=== PATIENT | female | born 1985 | race Caucasian/White ===

== ENCOUNTER 2017-06-11 08:15 | Emergency (ER) | payer OTHER ==
[2017-06-11 08:39] VITALS: BP 125/76
--- NOTE | 2017-06-11 09:18 | UC ---
Respiratory Complaint HPI - HPI Summary HPI Summary: 32 yo female c/o last 3+ days cough, congestion, fever. Denies GI sx. + yellow - white sputum production. + tobacco. + subj fever. + household contact with similar sx, and reports recent close contact Inf A exposure. + headache, mirta L frontal forehead. - History of Current Complaint Chief Complaint: UCRespiratory Stated Complaint: COUGH Time Seen by Provider: 06/11/17 08:58 Hx Obtained From: Patient Hx Last Menstrual Period: 06/02/17 ?: No Onset/Duration: Lasting Days - Allergies/Home Medications Allergies/Adverse Reactions: Allergies Allergy/AdvReac Type Severity Reaction Status Date / Time No Known Allergies Allergy Verified 06/11/17 08:39 Home Medications: Home Medications [id number]-Peepk [Vicks Dayquil/Nyquil Cold] 2 tab PO Q4HR PRN [History Confirmed 06/11/17] PMH/Surg Hx/FS Hx/Imm Hx Previously Healthy: Yes - Surgical History Surgical History: Yes Surgery Procedure, Year, and Place: c section; Lymphatic tumor removed right side; T&A - Family History Known Family History: Positive: Unknown - Social History Alcohol Use: Rare Substance Use Type: None Smoking Status (MU): Heavy Every Day Tobacco Smoker Amount Used/How Often: 1/2ppd - Immunization History Most Recent Influenza Vaccination: NOT UTD Review of Systems Constitutional: Fever, Fatigue Skin: Negative Eyes: Negative ENT: Sore Throat, Nasal Discharge, Sinus Congestion Respiratory: Cough Cardiovascular: Negative Gastrointestinal: Negative Genitourinary: Negative Motor: Negative Neurovascular: Negative Musculoskeletal: Negative Neurological: Negative Psychological: Negative Is Patient Immunocompromised?: No All Other Systems Reviewed And Are Negative: Yes Physical Exam Triage Information Reviewed: Yes Appearance: Well-Nourished - looks tired. nontoxic appearance. Able to walk around and respond to questions in full sentances. Vital Signs: Initial Vital Signs Temp 98.8 F 06/11/17 08:35 Pulse 100 06/11/17 08:35 Resp 20 06/11/17 08:35 BP 125/76 06/11/17 08:35 Pulse Ox 98 06/11/17 08:35 Vital Signs Reviewed: Yes Eye Exam: Normal ENT: Positive: Pharyngeal erythema - mild post phar redness, uvula midline. No obvious sores or ulcers, TM dull Neck exam: Normal Neck: Positive: Supple, Nontender, No Lymphadenopathy Respiratory Exam: Other - + rhonchorus cough, mild exp wheezes bilat. No stridor. BS equal Cardiovascular Exam: Normal Cardiovascular: Positive: RRR, No Murmur, Pulses Normal, Brisk Capillary Refill Abdominal Exam: Normal Musculoskeletal Exam: Normal - moves all 4 ext's Neurological Exam: Normal - grossly nonfocal Psychological Exam: Normal - converses easily and appropriately Skin Exam: Normal - no visible or reported rash. Non-diaphoretic. Diagnostic Evaluation - Laboratory O2 Sat by Pulse Oximetry: 98 Respiratory Course/Dx - Course Course Of Treatment: Influenza NS - neg. Reviewed CXR and report. Reviewed report with Ms. Gilbert, encouraged need for f/u with pcp. [facility] [place] referral telephone number given. Encourage smoking cessation. Rx albuterol. Also rx tamiflu (significant household exposure) and amoxil (bronchitis, probable additional sinusitis). D/w pt Tx plan / COA. Questions as posed answered to the best of my ability. - Differential Dx/Diagnosis Provider Diagnoses: Bronchitis. Probable sinusitis. + Influenza exposure Discharge - Discharge Plan Condition: Stable Disposition: HOME Prescriptions: Albuterol HFA INHALER* [Ventolin HFA Inhaler*] 1 - 2 puff INH Q6H PRN #1 mdi PRN Reason: Wheezing Amoxicillin PO (*) [Amoxicillin 875 MG (*)] 875 mg PO BID #14 tab Oseltamivir CAP* [Tamiflu CAP*] 75 mg PO BID #10 cap Patient Education Materials: How to Stop Smoking (ED), Acute Bronchitis (ED), COPD (Chronic Obstructive Pulmonary Disease) (ED) Forms: *Work Release Referrals: [facility] [place] PHYSICIAN REFERRAL [Outside] No Primary Care Phys,NOPCP [Primary Care Provider] - Additional Instructions: Please follow up with a primary care provider as soon as possible, if possible in the next 1-2 weeks. Please seek medical attention for worse or new problems in the meantime.
--- NOTE | 2017-06-11 10:21 | RAD ---
INDICATION: Cough, fever. History of tobacco use. COMPARISON: April 01, 2003 TECHNIQUE: Dual energy PA and routine lateral views of the chest were obtained. REPORT: Elevated lung volumes. Accounting for superimposed breast tissue and normal bronchovascular markings the lungs and pleural spaces are clear. Negative for pneumothorax. The heart, pulmonary vasculature, and mediastinal contours are unremarkable. Unremarkable soft tissue contours and osseous structures. IMPRESSION: 1. Elevated lung volumes suggest potential obstructive lung disease. 2. No evidence for pneumonia.
== END 2017-06-11 10:49 | disposition home or self-care (01) ==
LOC: UCEAST 08:15
DX: J40 Bronchitis, not specified as acute or chronic (principal); F17.210 Nicotine dependence, cigarettes, uncomplicated
CPT/HCPCS: 71046; 87502; 99212; G0463

== ENCOUNTER 2017-12-20 16:18 | Emergency (ER) | payer OTHER ==
[2017-12-20 16:40] VITALS: BP 107/80
--- NOTE | 2017-12-20 16:53 | UC ---
Abdominal Pain Female HPI - HPI Summary HPI Summary: This is [facility] documenting for presenting Ulises Cary MD. abd pain onset ~3 days ago. Pain is located in diffuse RLQ. Pain described as a 5/10 and is described as achey and sharp, per comp. assessment. Assoc. Sx: Nausea/Diarrhea x1 week. Denies: melena, vomiting. She reports that when she leans forward, she feels lightheaded like she is going to pass out. Denies travel outside of country, consumption of unusual food, and any ABX use. Diarrhea is described as soft stool. LNMP: November (normal). - History of Current Complaint Chief Complaint: UCAbdominalPain Stated Complaint: DIARRHEA, AND ABDOMINAL PAIN Time Seen by Provider: 12/20/17 16:46 Hx Obtained From: Patient Hx Last Menstrual Period: 12/08/17 Onset/Duration: Gradual Onset, Lasting Days - abd pain - 3 days, Lasting Weeks - diarrhea - 1 week, Still Present, Worse Since Severity Currently: Moderate Pain Intensity: 5 Pain Scale Used: 0-10 Numeric Location: Diffuse, Discrete At: RLQ Character: Aching, Sharp Aggravating Factor(s): Nothing Alleviating Factor(s): Nothing Associated Signs and Symptoms: Positive: Nausea, Diarrhea, Other: - POS: Abd Pain. Negative: Blood in Stool, Vomiting Allergies/Adverse Reactions: Allergies Allergy/AdvReac Type Severity Reaction Status Date / Time No Known Allergies Allergy Verified 12/20/17 16:40 Home Medications: Home Medications Control 12/20/17 [History] PMH/Surg Hx/FS Hx/Imm Hx Other Endocrine History: NEG: DM Other Cardiovascular History: NEG: CAD, HTN. - Surgical History Surgical History: Yes Surgery Procedure, Year, and Place: c section; Lymphatic tumor removed right side; T&A - Family History Known Family History: Negative: Cardiac Disease, Hypertension, Diabetes - Social History Occupation: Unemployed Lives: With Family Alcohol Use: Rare Substance Use Type: None Smoking Status (MU): Heavy Every Day Tobacco Smoker Amount Used/How Often: 1/2ppd - Immunization History Most Recent Influenza Vaccination: NOT UTD Review of Systems Gastrointestinal: Abdominal Pain - RLQ, Diarrhea, Nausea, Other - NEG: vomiting Genitourinary: Other - NEG: melena All Other Systems Reviewed And Are Negative: Yes Physical Exam - Summary Physical Exam Summary: VITAL SIGNS: Reviewed. GENERAL: Patient is a well-developed and nourished Female who is lying comfortable in the stretcher. Patient is not in any acute respiratory distress. HEAD AND FACE: Normocephalic EYES: PERRLA, EOMI x 2. EARS: Hearing grossly intact. MOUTH: Oropharynx within normal limits. NECK: Supple, trachea is midline, no adenopathy, no JVD, no carotid bruit. CHEST: Symmetric, no tenderness at palpation LUNGS: Clear to auscultation bilaterally. No wheezing or crackles. CVS: Regular rate and rhythm, S1 and S2 present, no murmurs or gallops appreciated. ABDOMEN: TTP RLQ, (+) guarding, (+) rebound. Bowel sounds are normal. No abdominal abnormal pulsations. EXTREMITIES: Full ROM in all major joints, no edema, no cyanosis or clubbing. NEURO: Alert and oriented x 3. No acute neurological deficits. Speech is normal and follows commands. SKIN: Dry and warm Triage Information Reviewed: Yes Vital Signs: Initial Vital Signs Temp 98.1 F 12/20/17 16:36 Pulse 89 12/20/17 16:36 Resp 18 12/20/17 16:36 BP 107/80 12/20/17 16:36 Pulse Ox 100 12/20/17 16:36 Vital Signs Reviewed: Yes Abd Pain Female Course/Dx - Course Course Of Treatment: This patient is a 33-year-old female who presents to the emergency room with a chief complaint of having right upper quadrant pain. The patient reports that she started having diarrhea couple days ago but now she has developed pain in the right upper quadrant. Patient also reports that she had some fevers acid with nausea and vomiting. In the physical exam the patient has right lower quadrant tenderness therefore she was referred to the emergency department for further workup and management. The patient declined ambulance transport. - Differential Dx/Diagnosis Provider Diagnoses: Lower abdominal pain Discharge - Sign-Out/Discharge Documenting (check all that apply): Patient Departure - Discharge Plan Condition: Stable Disposition: HOME-RECOMMEND TO ED Patient Education Materials: Abdominal Pain (ED) Referrals: [facility] [place] PHYSICIAN REFERRAL [Outside] - 3 Days Additional Instructions: Patient will be discharged to the ED for further assessment. Patient declined ambulance - Billing Disposition and Condition Condition: STABLE Disposition: Home-Recommend to ED
== END 2017-12-20 17:00 | disposition home health service (06) ==
LOC: UCEAST 16:18
DX: R10.31 Right lower quadrant pain (principal)
CPT/HCPCS: 99212; G0463

== ENCOUNTER 2017-12-20 17:21 | Emergency (ER) | payer OTHER ==
--- NOTE | 2017-12-20 19:01 | ED ---
Abdominal Pain/Female - HPI Summary HPI Summary: This is [facility] Clemons documenting for attending Aaron Beltran MD. This patient is a 32 year old F presenting to [facility] with a chief complaint of sharp abd pain since 2 days ago. The patient rates the pain 6/10 in severity. Symptoms aggravated by bending and moving. Patient reports diarrhea, nausea, dizziness, cold sweats, and decreased appetite. Patient denies vomiting, fever, or bloody stool. CC told her to come to the ED to check for APPY. Pt has had the GI problems for about a week. No history of stomach problems. Pt has not had trouble with these symptoms before. PMHX c section. SHX regular tobacco use , rare EtOH use. Pt works as a operations/dispatch. RX none. - History of Current Complaint Chief Complaint: EDAbdPain Stated Complaint: ABD PAIN Time Seen by Provider: 12/20/17 18:50 Hx Obtained From: Patient Hx Last Menstrual Period: 12/08/17 Onset/Duration: Sudden Onset, Lasting Days - 2 Timing: Constant Severity Initially: Moderate Severity Currently: Moderate Pain Intensity: 6 Pain Scale Used: 0-10 Numeric Character: Sharp Aggravating Factor(s): Movement Associated Signs and Symptoms: Positive: Diaphoresis, Dizzy, Decreased Appetite , Nausea, Diarrhea. Negative: Fever, Blood in Stool, Vomiting Allergies/Adverse Reactions: Allergies Allergy/AdvReac Type Severity Reaction Status Date / Time No Known Allergies Allergy Verified 12/20/17 16:40 PMH/Surg Hx/FS Hx/Imm Hx Endocrine/Hematology History: Denies: Hx Diabetes, Hx Thyroid Disease Cardiovascular History: Denies: Hx Hypertension Respiratory History: Denies: Hx Asthma, Hx Chronic Obstructive Pulmonary Disease (COPD) GI History: Denies: Hx Ulcer - Surgical History Surgery Procedure, Year, and Place: c section; Lymphatic tumor removed right side; T&A Infectious Disease History: No Infectious Disease History: Denies: Hx Hepatitis, Hx Human Immunodeficiency Virus (HIV), Traveled Outside the [place] in Last 30 Days - Family History Known Family History: Positive: Unknown - Social History Alcohol Use: Rare Substance Use Type: Reports: None Smoking Status (MU): Heavy Every Day Tobacco Smoker Type: Cigarettes Amount Used/How Often: 1/2ppd Review of Systems Positive: Chills, Skin Diaphoresis. Negative: Fever Positive: Abdominal Pain, Diarrhea, Nausea. Negative: Vomiting All Other Systems Reviewed And Are Negative: Yes Physical Exam - Summary Physical Exam Summary: Appearance: Well-appearing, Well-nourished, lying in bed comfortably Skin: Warm, dry, no obvious rash Eyes: sclera anicteric, no conjunctival pallor ENT: mucous membranes moist, pharynx appears normal Neck: Supple, nontender Respiratory: Clear to auscultation, no signs of respiratory distress Cardiovascular: Normal S1, S2. No murmurs. Normal distal pulses in tibial and radial bilaterally. Abdomen: Soft, normal active bowel sounds present. Diffuse tenderness without guarding or rebound. No focal tenderness. Musculoskeletal: Normal, Strength/ROM Intact Neurological: A&Ox3, awake and alert, mentation is normal, speech is fluent and appropriate Psychiatric: affect is normal, does not appear anxious or depressed Triage Information Reviewed: Yes Vital Signs On Initial Exam: Initial Vitals Temp Pulse Resp BP Pulse Ox 98.1 F 82 18 127/94 100 12/20/17 17:27 12/20/17 17:27 12/20/17 17:27 12/20/17 17:27 12/20/17 17:27 Vital Signs Reviewed: Yes Diagnostics - Vital Signs Vital Signs Temp Pulse Resp BP Pulse Ox 12/20/17 18:48 98.4 F 12/20/17 18:46 67 129/98 100 12/20/17 17:27 98.1 F 82 18 127/94 100 - Laboratory Result Diagrams: 12/20/17 19:12 12/20/17 19:11 Lab Statement: Any lab studies that have been ordered have been reviewed, and results considered in the medical decision making process. - CT CT Abd/Pel CT Interpretation Completed By: Radiologist - No acute findings. ED physician has reviewed this radiology report. Abdominal Pain Fem Course/Dx - Diagnoses Differential Diagnosis: Positive: Appendicitis Provider Diagnoses: Diarrhea, Enteritis Discharge - Sign-Out/Discharge Documenting (check all that apply): Patient Departure - Discharge Plan Condition: Good Disposition: HOME Patient Education Materials: Acute Diarrhea (ED) Referrals: [facility] [Outside] Additional Instructions: The stool tests take a few days to come back from the lab. Depending on what that shows and whether you are still symptomatic, an antibiotic might be prescribed. I do not expect you to get any worse, so if you do, we should see you back here sooner. - Billing Disposition and Condition Condition: GOOD Disposition: Home
[2017-12-20 19:18] LABS: ABS Basophils 0.1 10^3/ul (0-0.2); ABS Eosinophils 0.1 10^3/ul (0-0.6); ABS Lymphocytes 2.9 10^3/ul (1.0-4.8); ABS Monocytes 0.5 10^3/ul (0-0.8); ABS Neutrophils 4.9 10^3/ul (1.5-7.7); ABS Nucleated RBC 0 10^3/ul; Eosinophil % 0.6 % (0-6); Hematocrit 41 % (35-47); Hemoglobin 14.1 g/dl (12.0-16.0); Lymphocyte % 34.6 % (25-47); Mean Corpuscular HGB Conc 34 g/dl (31-36); Mean Corpuscular Hemoglobin 30 pg (27-31); Mean Corpuscular Volume 87 fL (80-97); Mean Platelet Volume 7.4 um3 (7.4-10.4); Nucleated Red Blood Cells % 0.1; Platelet Count 259 10^3/ul (150-450); Red Blood Count 4.73 10^6/ul (4.00-5.40); Red Cell Distribution Width 13 % (10.5-15); White Blood Count 8.5 10^3/ul (3.5-10.8)
[2017-12-20] MEDS: NS 0.9% 1000 ML* 2,000 ML IV ONE (19:26)
[2017-12-20 19:41] LABS: EGFR Non-African American 81.9 (>60)
[2017-12-20 19:59] LABS: Urine Appearance Clear; Urine Blood Negative (Negative); Urine Color Straw; Urine Ketones Trace (Negative); Urine Protein Negative (Negative); Urine Specific Gravity 1.006 (1.010-1.030); Urine Urobilinogen Negative (Negative)
[2017-12-20] MEDS ORDERED: Iohexol 300* (CONTRAST) 10 ML SDV IV ONE (21:04)
[2017-12-20 22:37] VITALS: BP 116/77
--- NOTE | 2017-12-21 08:46 | RAD ---
Indication: Abdominal pain. Contrast: Administered 85.1 ml of OMNIPAQUE 300 mg/ml CT of the abdomen and pelvis was performed in the axial plane. Sagittal and coronal reconstructed images were obtained. The lung bases demonstrate no pleural fluid, nodules or masses. Heart is of normal size without evidence of pericardial effusion. The liver is normal in size. No focal lesions or intrahepatic ductal dilatation is noted. Gallbladder demonstrates no calcified gallstones. No pericholecystic fluid or wall thickening is identified. The pancreas demonstrates no mass or pancreatic duct dilatation. The spleen is normal in size. No adrenal masses are noted. The kidneys demonstrate symmetric nephrograms without hydronephrosis. No focal masses are noted in either kidney. Aorta and inferior vena cava are unremarkable. No retroperitoneal lymphadenopathy is noted. The appendix is visualized and is normal. No dilated loops of bowel are noted. No evidence of bowel obstruction is noted. The urinary bladder is otherwise unremarkable. Uterus and ovaries are unremarkable. No evidence of abdominal wall hernias are noted. The bony structures are grossly unremarkable. IMPRESSION: No evidence of appendicitis with normal appendix. No abnormal masses or fluid collections are identified.
== END 2017-12-20 22:45 | disposition home or self-care (01) ==
LOC: ED 17:21
DX: K52.9 Noninfective gastroenteritis and colitis, unspecified (principal); R42 Dizziness and giddiness; R61 Generalized hyperhidrosis; F17.210 Nicotine dependence, cigarettes, uncomplicated
CPT/HCPCS: 36415; 74177; 80053; 81003; 83690; 84702; 85025; 96360; 96361; 99283; Q9967

== ENCOUNTER 2018-09-30 13:53 | Emergency (ER) | payer SELFPAY ==
[2018-09-30 14:11] VITALS: BP 127/88
[2018-09-30] MEDS ORDERED: Tetan/Diph/Pertus SYR(Tdap)* 0.5 ML SYR(BOOSTRIX) use SYR IM ONE (14:46)
[2018-09-30] MEDS ORDERED: Lidocaine 1% MPF wEPI 200,000* 30 ML SDV INJ ONE (14:46)
--- NOTE | 2018-09-30 15:32 | UC ---
Hand/Wrist HPI - HPI Summary HPI Summary: 33-year-old female presents with complaints of a wooden splinter in the palm of her left hand. States this occurred just prior to arrival. He was at work, slipped, and she caught herself on a wooden shelf. States she was able to take a small piece of the splinter out but is able to feel part of the splinter still in her hand. Reports minimal bleeding. Tetanus status is unknown. Denies decrease in range of motion or loss of sensation. - History Of Current Complaint Chief Complaint: UCSkin Stated Complaint: SPLINTER Time Seen by Provider: 09/30/18 14:16 Hx Obtained From: Patient Hx Last Menstrual Period: 12/08/17 Pain Intensity: 5 - Allergies/Home Medications Allergies/Adverse Reactions: Allergies Allergy/AdvReac Type Severity Reaction Status Date / Time No Known Allergies Allergy Verified 09/30/18 14:04 PMH/Surg Hx/FS Hx/Imm Hx Previously Healthy: Yes - Denies significant PMH - Surgical History Surgical History: Yes Surgery Procedure, Year, and Place: c section; Lymphatic tumor removed right side; T&A - Family History Known Family History: Positive: Non-Contributory - Social History Occupation: Employed Full-time Lives: With Family Alcohol Use: Rare Substance Use Type: Marijuana Substance Use Comment - Amount & Last Used: weekly Smoking Status (MU): Heavy Every Day Tobacco Smoker Type: Cigarettes Amount Used/How Often: 1/2ppd - Immunization History Most Recent Influenza Vaccination: NOT UTD Review of Systems All Other Systems Reviewed And Are Negative: Yes Constitutional: Negative: Fever, Chills Skin: Positive: Other - See HPI Respiratory: Positive: Negative Cardiovascular: Positive: Negative Gastrointestinal: Positive: Negative Genitourinary: Positive: Negative Motor: Negative: Weakness Neurovascular: Negative: Decreased Sensation Musculoskeletal: Negative: Arthralgia, Decreased ROM Neurological: Positive: Negative Is Patient Immunocompromised?: No Physical Exam - Summary Physical Exam Summary: GENERAL APPEARANCE: Well developed, well nourished, alert and cooperative, and appears to be in no acute distress. CARDIAC: Normal S1 and S2. No S3, S4 or murmurs. Rhythm is regular. There is no peripheral edema, cyanosis or pallor. Extremities are warm and well perfused. Capillary refill is less than 2 seconds. Peripheral pulses intact. LUNGS: Clear to auscultation without rales, rhonchi, wheezing or diminished breath sounds. ABDOMEN: Positive bowel sounds. Soft, nondistended, nontender. No guarding or rebound. No masses or hepatosplenomegally. MUSKULOSKELETAL: ROM intact to all extremities. No joint erythema or tenderness. Normal muscular development. Normal gait. EXTREMITIES: Small puncture wound to the webspace of the palmar aspect of the left hand with a palpable subdermal linear foreign body noted. SKIN: Skin normal color, texture and turgor. Triage Information Reviewed: Yes Vital Signs: Initial Vital Signs Temp 98.9 F 09/30/18 14: Pulse 83 09/30/18 14: Resp 18 09/30/18 14: BP 127/88 09/30/18 14: Pulse Ox 100 09/30/18 14:01 Vital Signs Reviewed: Yes Images Hands: 1 - Palpable linear foreign body Procedures - Procedure Summary Procedure Summary: PROCEDURE NOTE: Removal of foreign body from left hand with closure using sutures. Informed consent was obtained before procedure started and the appropriate timeout was taken. The area was prepped fashion with Betadine. Local anesthesia was achieved using 2 ml of lidocaine 1% with epinephrine. A 1.5 cm incision was made along the top of the foreign body and a 2 cm wooden splinter was removed in its entirety. The wound was further cleaned and irrigated by myself. The incision was then closed with 3 interrupted sutures using 4-0 Ethilon. Estimated blood loss was minimal. A dressing was applied to the area. Anticipatory guidance, as well as standard post-procedure care was discussed with patient. Return precautions are given. The patient tolerated the procedure well without complications. Patient is to return in 2 days for wound check and then in 10-14 days for suture removal. Diagnostics - Radiology No standard instances Radiology Interpretation Completed By: Radiologist Summary of Radiographic Findings: Order Information: HAND - LEFT MINIMUM 3 VIEWS. Accession Number: [id number]. CPT: 70268. Indication: Evaluate for foreign body. 3 views of the left hand demonstrates no evidence of radiopaque foreign body. The area was marked with a radiopaque marker. IMPRESSION:: No evidence of radiopaque foreign body is identified. Hand/Wrist Course/Dx - Course Course Of Treatment: 33-year-old female presents with complaints of a wooden splinter in the palm of her left hand. States this occurred just prior to arrival. He was at work, slipped, and she caught herself on a wooden shelf. States she was able to take a small piece of the splinter out but is able to feel part of the splinter still in her hand. Reports minimal bleeding. Tetanus status is unknown. Denies decrease in range of motion or loss of sensation. Afebrile. Vital signs stable. Exam reveals a small puncture wound to the webspace of the palmar aspect of her left hand with a palpable subdermal linear foreign body. The hand was soaked in a chlorhexidine and saline solution by the RN. A x-ray of the hand was obtained but the foreign body was not visible. After obtaining informed consent and performing a timeout the area of the foreign body was anesthetized using 2 mL of 1% lidocaine with epinephrine, a 1.5 cm linear incision was made along the top of the foreign body, and a 2 cm wooden splinter was removed in its entirety. The wound was further cleaned and irrigated by myself. The incision was then closed with 3 interrupted sutures using 4-0 Ethilon. A dressing was applied by the RN. The patient's tetanus was updated. Wound care, anticipatory guidance, and warning symptoms were reviewed with the patient. I'm going to place the patient prophylactically on Augmentin 875 mg twice a day 5 days. She is to return here in 2 days for a wound check and then in 10-14 days for suture removal. Patient verbalized understanding of instructions and agrees with plan of care. - Differential Dx/Diagnosis Differential Diagnosis/HQI/PQRI: Foreign Body, Puncture Wound Provider Diagnosis: Foreign body of left hand Discharge - Sign-Out/Discharge Documenting (check all that apply): Patient Departure All imaging exams completed and their final reports reviewed: Yes - Discharge Plan Condition: Stable Disposition: HOME Prescriptions: Amoxicillin/Clavulanate TAB* [Augmentin TAB 875*] 875 mg PO BID #10 tab Patient Education Materials: Care For Your Stitches (ED), Soft Tissue Foreign Body (ED) Referrals: No Primary Care Phys,NOPCP [Primary Care Provider] - Additional Instructions: We were able to successfully remove the splinter from your hand. I am going to place you on some antibiotics for a few days to help prevent infection. Start Augmentin 875 mg 1 tab twice a day for 5 days. Take with food to avoid upset stomach. Leave the dressing that was applied in the clinic today in place for the next 24 hours. Be sure to keep it clean and dry. After 24 hours you may shower and wash your hands as normal however you should avoid submerging the hand under water such as with dishwashing until fully healed. The wound will need to be cleaned with a mild soap and water at least once a day. Apply an antibiotic ointment such as bacitracin to the wound and cover with a bandage. Change the bandage at least once a day or any time it becomes wet or soiled. Return here in 2 days for a wound check. The sutures will need to be removed in 10-14 days. You may return here or with your primary care provider to have these removed. Take acetaminophen (Tylenol) or ibuprofen (Advil, Motrin) according to directions as needed for pain. Watch for signs of infection including fever greater than 100.5 F, pain not managed with pain medication, redness that spreads, swelling of the hand, or pus draining from the wound. Seek immediate medical attention should any of these occur. - Billing Disposition and Condition Condition: STABLE Disposition: Home
== END 2018-09-30 15:42 | disposition home or self-care (01) ==
LOC: UCEAST 13:53
DX: S60.552A Superficial foreign body of left hand, initial encounter (principal); W45.8XXA Other foreign body or object entering through skin, initial encounter; Y92.9 Unspecified place or not applicable; Y99.0 Civilian activity done for income or pay; Z23 Encounter for immunization; F17.210 Nicotine dependence, cigarettes, uncomplicated
CPT/HCPCS: 10120; 12001; 90471; 90715; 99212; G0463; J2001